=== PATIENT | female | born 1985 | race Caucasian/White ===

== ENCOUNTER 2019-05-17 07:43 | Emergency (ER) | payer SELFPAY ==
[~2019-05-17] VITALS: Ht 157.4 cm; Wt 61.2 kg
[~2019-05-17 07:43] MED LIST: AMOXICILLIN500 MG PO; BACTRIM DS 8001 TA1 PO; BACTROBAN CREAM15 GM T; BENTYL10 MG PO; BENTYL20 MG PO; CIPRO250 MG PO; CLEOCIN150 MG PO; HYDROCODONE BIT1 T11 PO; MEDROL DOSEPAK4 MG PO; NKHM PO; PERCOCET 325 MG1 TA2 PO; PHENERGAN25 M1 PO; VICODIN1 TAB PO; ZOFRAN ODT4 MG SL; ZOFRAN4 MG PO
[2019-05-17 08:34] LABS: BASO # 0.1 10*3/uL (0.0-0.1); BASO % 0.9 % (0.0-1.0); EOS # 0.1 10*3/uL (0.0-0.4); EOS % 0.9 % (1.0-4.0); HEMATOCRIT 37.4 % (37.0-47.0); HEMOGLOBIN 12.4 g/dl (12.0-16.0); LYMPH # 1.2 10*3/uL (1.3-4.4); LYMPH % 20.7 % (27.0-41.0); MEAN CELL VOLUME 84.8 fl (81.0-99.0); MEAN CORPUSCULAR HGB 28.1 pg (27.0-31.0); MEAN CORPUSCULAR HGB CONC 33.2 g/dl (33.0-37.0); MEAN PLATELET VOLUME 11.4 fl (9.6-12.3); MONO # 0.3 10*3/uL (0.1-1.0); MONO % 6.1 % (3.0-9.0); NEUT % 71.2 % (47.0-73.0); PLATELET COUNT AUTOMATED 157 10*3/uL (130-400); RED BLOOD COUNT 4.41 10*6/uL (4.10-5.10); RED CELL DISTRI WIDTH 12.6 % (0-14.5); WHITE BLOOD COUNT 5.6 10*3/uL (4.8-10.8)
[2019-05-17 08:46] LABS: ALKALINE PHOSPHATASE 83 U/L (45-117); BUN 8 mg/dl (7-24); CHLORIDE 106 mmol/L (98-107); CREATININE 0.74 mg/dL (0.55-1.02); POTASSIUM 3.1 mmol/L (3.5-5.1); SGOT/AST 23 IU/L (3-35); SGPT/ALT 28 U/L (12-78); SODIUM 138 mmol/L (136-145); TOTAL PROTEIN 7.1 gm/dL (6.4-8.2)
[2019-05-17] MEDS ORDERED: IMODIUM A-D2 M2 PO (10:09)
== END 2019-05-17 10:30 | disposition home or self-care (01) ==
LOC: ED 07:43
PROVIDERS: Emergency Medicine
DX: R19.7 Diarrhea, unspecified (principal); K92.1 Melena; R10.32 Left lower quadrant pain; Z91.040 Latex allergy status; Z88.2 Allergy status to sulfonamides; Z90.49 Acquired absence of other specified parts of digestive tract

== ENCOUNTER 2019-05-24 17:49 | Emergency (ER) | payer OTHER ==
[~2019-05-24] VITALS: Ht 152.4 cm; Wt 61.2 kg
[~2019-05-24 17:49] MED LIST changes: +IMODIUM A-D2 M2 PO
[2019-05-24] MEDS ORDERED: NAPROSYN500 MG PO (20:00)
== END 2019-05-24 20:01 | disposition home or self-care (01) ==
LOC: ED 17:49
DX: S00.33XA Contusion of nose, initial encounter (principal); Z98.51 Tubal ligation status; Z98.890 Other specified postprocedural states; Z91.040 Latex allergy status; Z88.8 Allergy status to other drugs, medicaments and biological substances; V49.59XA Passenger injured in collision with other motor vehicles in traffic accident, initial encounter; Y93.89 Activity, other specified; Y92.413 State road as the place of occurrence of the external cause; Y99.9 Unspecified external cause status